=== PATIENT | male | born 2000 | race African-American/Black ===

== ENCOUNTER 2021-08-23 11:15 | Emergency (ER) | payer MEDICAID, OTHER ==
[~2021-08-23] VITALS: Ht 185.4 cm; Wt 116.0 kg
[2021-08-23] MEDS ORDERED: KETOROLAC 30MG/ML VIAL IM ONE (12:15)
[2021-08-23] MEDS ORDERED: IBUP-2029 MT (13:25)
[2021-08-23 13:49] VITALS: BP 125/76
== END 2021-08-23 13:50 | disposition home or self-care (01) ==
LOC: ER 11:15
DX: M25.552 Pain in left hip (principal); F99 Mental disorder, not otherwise specified; Z88.5 Allergy status to narcotic agent; Y04.0XXA Assault by unarmed brawl or fight, initial encounter; Y93.89 Activity, other specified; Y92.018 Other place in single-family (private) house as the place of occurrence of the external cause
CPT/HCPCS: 73502; 96372; 99283; J1885